=== PATIENT | female | born 1945 | race Caucasian/White ===

== ENCOUNTER 2017-11-04 11:32 | Inpatient (IN) | payer MEDICARE ==
[~2017-11-04] VITALS: Ht 170.2 cm; Wt 86.3 kg
[2017-11-04] MEDS ORDERED: DILTIAZEM HCL 5 MG/ML 5 ML VIAL IV STA ×4 (12:07→13:22)
[2017-11-04] MEDS ORDERED: ONDANSETRON HCL INJ 2 MG/ML VIAL IV STA (12:07)
[2017-11-04] MEDS ORDERED: ENOXAPARIN INJ 80 MG/0.8 ML SYR SC STA (12:48)
[2017-11-04] MEDS ORDERED: DILTIAZEM HCL 5 MG/ML 5 ML VIAL IV ONE (15:30)
[2017-11-04] MEDS ORDERED: ACETAMINOPHEN 325 MG TAB PO PRN (15:30)
[2017-11-04] MEDS ORDERED: ONDANSETRON HCL INJ 2 MG/ML VIAL IV PRN (15:30)
[2017-11-04] MEDS: AMIODARONE HCL 200 MG TAB PO SCH ×2 (15:40→21:30)
[2017-11-04 15:44] VITALS: BP 110/75
[2017-11-04 15:45] VITALS: BP 110/75
[2017-11-04] MEDS ORDERED: DILTIAZEM HCL IV SOLN 125 MG in SODIUM CHLORIDE 0.9% 100 ML 100 ML IV PRN (15:45)
[2017-11-04] MEDS: METOPROLOL TARTRATE 25 MG TAB PO SCH (18:59)
[2017-11-04] MEDS: APIXABAN 5 MG TABLET PO SCH (19:00)
[2017-11-04 19:15] VITALS: BP 93/68
[2017-11-04 21:15] VITALS: BP 105/70
[2017-11-04 21:20] VITALS: BP 105/70
--- NOTE | 2017-11-04 22:53 | Consultation ---
DATE OF CONSULTATION: November 04, 2017 CARDIAC CONSULTATION REASON FOR CONSULTATION: Atrial fibrillation with near syncope. HISTORY: A 71-year-old lady for the last 2 years is having palpitation and near syncope like episodes. Becoming more frequent recently. She is followed by Dr. Wagoner in [facility]. Patient had a Holter 2 weeks ago which showed no abnormality. Today, she was feeling samra no apparent distress dizzy going to pass out. She came to the emergency room. She was in atrial fibrillation with rapid ventricular response. Given Cardizem, started on Cardizem drip. Admitted for further management. Cardiac consult is obtained. Patient denied having angina. She is to a certain extent active. Her main problem is palpitation and strange feeling. She thought it was anxiety. She had several episodes of near syncope. There is no orthopnea. No paroxysmal nocturnal dyspnea. REVIEW OF SYSTEMS: CARDIAC: As per above. PULMONARY: No cough. No hemoptysis. GI: No hematemesis. No melena. GERD symptoms. : Increased frequency of urination. No hematuria. NEUROMUSCULAR: Low backache radiating to the right leg. HEMATOLOGY: No easy bruising or bleeding. ENDOCRINE: No diabetes mellitus. NEUROLOGIC: Occasional headache. No localized deficits. No seizure. PSYCHIATRIC: History of depression in the past. HOME MEDICATIONS: None. ALLERGIES: CODEINE. PAST MEDICAL HISTORY: 1. Hysterectomy. 2. Bartholin gland surgery. 3. Depression in the past. 4. Low back pain. 5. GERD. 6. Radiculopathy to the right leg. FAMILY HISTORY: Father at age 89 with myocardial infarction. Mother of congestive heart failure at age 88. Eight siblings with chronic illnesses and cancer. No premature coronary artery disease. 1 son in his 50s. PHYSICAL EXAMINATION VITALS: Height of 5 feet 7 inches, weight of 200 pounds. Blood pressure 120/80. Heart rate of 60. Respiratory rate of 18. Afebrile. HEENT: Pupils are equal and reactive. NECK: No elevation of jugular venous pulsation. No thyromegaly. No lymphadenopathy. CHEST: Clear to auscultation and percussion. HEART: Irregular, irregular rate. PMI 5th left intercostal space. Normal 1st and 2nd heart sounds. ABDOMEN: Soft with good bowel sounds. No organomegaly. No abdominal bruits. EXTREMITIES: No cyanosis. No clubbing. No edema. No signs of deep venous thrombosis. NEUROLOGIC: Awake, alert oriented. Neck supple. No motor deficit. LABORATORY DATA: Sodium 143. Potassium 4.3. BUN of 15. Creatinine of 1.1. Glucose of 119. BNP of 102. First set of cardiac enzymes normal. White blood cell count of 6.5. Hemoglobin 14.2. Hematocrit 44%. Platelet count of 205,000. Pro time of 11.6 seconds. EKG showing atrial fibrillation with nonspecific ST changes, rapid ventricular response noted. IMPRESSION AND PLAN: 1. Paroxysmal atrial fibrillation. 2. Near syncope. Plausible to be to the fast V response but more possible long pauses and possible contraction abnormalities. 3. Gastroesophageal reflux disease. 4. Allergies and hay fever. 5. Back pain with radiculopathy to the right leg. We had lengthy discussion and discussed treatment of atrial fibrillation. Rate controlled maintenance of anticoagulation to prevent from CVA and observation in her case for possible contraction abnormality. After discussing the pros and cons, we are going to put her on Eliquis, beta esmer. Observe her on telemetry. She needs to discuss with her MD in [place] after she finishes regarding the other options such as ablation ( had already atrial fibrillation ablation), and other moderately and treatment and agents. Although I started the patient on amiodarone orally, my recommendation for this lady is to be on less side effect medication such as Multaq if she converted to normal sinus rhythm. Meanwhile, we will continue Cardizem until the patient's heart rate is controlled or she converts to normal sinus. The final plan of medication and treatment, we discussed several options, but this will be done by the physician who will be following her carefully. I would like to thank you for your kind referral. Job#: [id number]
[2017-11-05 00:19] VITALS: BP 94/60
[2017-11-05 04:38] VITALS: BP 104/60
[2017-11-05 05:40] LABS: BASOPHILS # (AUTO) 0.1 (0.0-0.1); BASOPHILS % 1.1 % (0.0-1.0); EOSINOPHILS # (AUTO) 0.3 (0.0-0.4); EOSINOPHILS % 4.2 % (0.0-6.0); HEMATOCRIT 38.2 % (34.2-44.1); HEMOGLOBIN 12.8 g/dL (12.0-16.0); LYMPHOCYTES # (AUTO) 1.8 (1.0-3.2); LYMPHOCYTES % 27.7 % (18.0-39.1); MEAN CORPUSCULAR HEMOGLOBIN 29.8 pg (28-32); MEAN CORPUSCULAR HGB CONC 33.5 g/dL (31-35); MEAN CORPUSCULAR VOLUME 88.8 fL (81-99); MONOCYTES # (AUTO) 0.8 (0.2-0.8); MONOCYTES % 11.7 % (4.4-11.3); NEUTROPHILS # (AUTO) 3.7 (2.1-6.9); PLATELET COUNT 191 x10e3/uL (140-360); RED CELL DISTRIBUTION WIDTH 12.6 % (11.7-14.4)
[2017-11-05] MEDS: METOPROLOL TARTRATE 25 MG TAB PO SCH ×2 (05:57)
[2017-11-05 06:10] LABS: ALBUMIN 3.6 g/dL (3.5-5.0); ALBUMIN/GLOBULIN RATIO 1.3 (0.8-2.0); ANION GAP 11.2 mmol/L (8-16); CALCIUM 9.3 mg/dL (8.4-10.2); CREATININE, SERUM 0.97 mg/dL (0.57-1.11); POTASSIUM 4.2 mmol/L (3.5-5.1)
[2017-11-05 06:20] LABS: ALANINE AMINOTRANSFERASE 21 IU/L (0-55); ALBUMIN 3.5 g/dL (3.5-5.0); ALKALINE PHOSPHATASE 58 IU/L (40-150); ANION GAP 12.2 mmol/L (8-16); BILIRUBIN,DIRECT 0.3 mg/dL (0.0-0.5); BLOOD UREA NITROGEN 17 mg/dL (7-26); BUN/CREATININE RATIO 18 (6-25); CALCIUM 9.4 mg/dL (8.4-10.2); CARBON DIOXIDE 26 mmol/L (22-29); CHLORIDE 108 mmol/L (98-107); CHOL/HDL RATIO 4.6 (3.0-3.6); CHOLESTEROL 207 MD/DL (0-199); CREATININE, SERUM 0.96 mg/dL (0.57-1.11); EST GLOMERULAR FILTRATION RATE 57 ML/MIN (60-); GLUCOSE 104 mg/dL (74-118); HDL CHOLESTEROL 45 MG/DL (40-60); LDL CHOLESTEROL 141 MG/DL (60-130); MAGNESIUM 2.1 MG/DL (1.3-2.1); POTASSIUM 4.2 mmol/L (3.5-5.1); SODIUM 142 mmol/L (136-145); TRIGLYCERIDES 107 MG/DL (0-149)
[2017-11-05 06:42] LABS: THYROID STIMULATING HORMONE 5.878 uIU/mL (0.350-4.940)
[2017-11-05 07:38] VITALS: BP 113/72
[2017-11-05] MEDS ORDERED: ASPIRIN 325 MG TAB PO SCH (09:00)
[2017-11-05] MEDS ORDERED: ASPIRIN 81 MG CHEW TAB PO SCH (09:00)
[2017-11-05] MEDS: APIXABAN 5 MG TABLET PO SCH (09:58)
[2017-11-05] MEDS: AMIODARONE HCL 200 MG TAB PO SCH ×2 (09:58→15:27)
[2017-11-05 09:59] VITALS: BP 113/72
[2017-11-05 12:11] VITALS: BP 120/76
--- NOTE | 2017-11-05 13:16 | Discharge Summary ---
PRIMARY CARE PHYSICIAN: Dr. Carter Wagoner with [facility] FINAL DIAGNOSIS: Paroxysmal atrial fibrillation with rapid ventricular response, currently in sinus. SECONDARY DIAGNOSES 1. Psychiatric disorder, not otherwise specified. 2. Dyslipidemia. CONSULTANTS: Dr. Montes, cardiology. PROCEDURES/STUDIES PERFORMED: Echocardiogram. HISTORY: Per [facility] HOSPITAL COURSE: Patient was admitted with symptomatic atrial fibrillation with rapid ventricular response. Her TSH was acceptable. Patient was evaluated by cardiology. Patient was on diltiazem drip, subsequently converted to oral amiodarone loading currently at 400 mg p.o. t.i.d. Patient will remain on that for 2 weeks then it come down to b.i.d. Her echocardiogram was relatively unremarkable. Patient will also be on Eliquis for stroke prophylaxis. Patient states that she does not feel safe at home given that the has anger management problem. Patient was evaluated by social work coordinator, case repairer here and will be discharged to a senior living per their recommendation. Patient was seen and evaluated today. CONDITION ON DISCHARGE: Stable. It took 32 minutes total to discharge this patient. DISCHARGE MEDICATIONS: Please see medication reconciliation form. FRANCISCO JAVIER CALIX M.D. Job#: [id number] SRINIVASAN
[2017-11-05] MEDS ORDERED: METOPROLOL TART25 MG PO (16:06)
[2017-11-05] MEDS ORDERED: e (16:06)
[2017-11-05] MEDS ORDERED: PRAVACHOL20 MG PO (16:07)
[2017-11-05] MEDS ORDERED: eliquis PO (16:07)
[2017-11-05] MEDS ORDERED: AMIODARONE HCL200 MG PO (16:09)
[2017-11-05] MEDS ORDERED: METOPROLOL TARTRATE 25 MG TAB PO SCH (17:00)
[2017-11-05] MEDS ORDERED: PRAVASTATIN 20 MG TAB PO SCH (21:00)
== END 2017-11-05 16:49 | DRG 310 ==
LOC: FSED 11:32 → ERHOLD 12:10 → IMCU 14:10
PROVIDERS: ADMIT Internal Medicine; ATTEND Internal Medicine
DX: I48.0 Paroxysmal atrial fibrillation (principal); K21.9 Gastro-esophageal reflux disease without esophagitis; F09 Unspecified mental disorder due to known physiological condition; E78.5 Hyperlipidemia, unspecified; J30.1 Allergic rhinitis due to pollen; M54.10 Radiculopathy, site unspecified; R35.0 Frequency of micturition
CPT/HCPCS: 36415; 71046; 80048; 80053; 80061; 80076; 81003; 82270; 82553; 83735; 83880; 84443; 84484; 85025; 85610; 93005; 93306; 99285; J2405

== ENCOUNTER → 2018-05-22 | Emergency (ER) | payer MEDICARE ==
[~2018-05-22] VITALS: Ht 170.2 cm; Wt 86.2 kg
[~2018-05-22] MED LIST: AMIODARONE HCL200 MG PO; METOPROLOL TART25 MG PO; ONDANSETRON HCL INJ 2 MG/ML VIAL IV NR; PRAVACHOL20 MG PO; e; eliquis PO
--- OUTSIDE RECORDS SUMMARY | 2018-05-22 10:14 | XMS REPORT | Clinical Summary ---
Author Author [facility] Address Unknown Phone Unavailable Care Team Providers Care Web Support Engineer Name Role Phone Carter Wagoner PCP Allergies No Known Allergies Medications End Date Status Medication Sig Dispensed Refills Start Date 05/22/2017 azithromycin (ZITHROMAX Take 1 tablet 6 tablet 0 Z-YASMIN) 250 MG tablet (250 mg 7 total) by mouth daily for 5 days 2 tabs day one then one daily till gone. 05/24/2017 benzonatate (TESSALON) Take 1 21 capsule 0 100 MG capsule capsule (100 7 mg total) by mouth every 8 (eight) hours for 7 days. 05/24/2017 ondansetron (ZOFRAN) 4 MG Take 1 tablet 12 tablet 0 tablet (4 mg total) 7 by mouth every 6 (six) hours for 7 days. Active Problems Not on file Social History Date Tobacco Use Types Packs/Day Years Used Never Assessed Sex Assigned at Date Recorded Not on file Industry Job Start Date Occupation Not on file Not on file Not on file Travel End Travel History Travel Start No recent travel history available. Last Filed Vital Signs Not on file Plan of Treatment Not on file Results Not on fileafter 05/21/2017 Insurance Payer Benefit Subscriber ID Type Phone Address Plan / Group [facility] xxxxxxxxxxx MEDICARE ADV
--- OUTSIDE RECORDS SUMMARY | 2018-05-22 10:14 | XMS REPORT | Clinical Summary ---
Author Author [facility] Address Unknown Phone Unavailable Care Team Providers Care Second Time Worker Name Role Phone Asked, No Pcp PCP Unavailable Allergies No Known Allergies Medications End Date Status Medication Sig Dispensed Refills Start Date Active aspirin (ECOTRIN) 81 MG Take 81 mg by 0 enteric coated tablet mouth daily. Active Problems Not on file Social History Date Tobacco Use Types Packs/Day Years Used Never Smoker Alcohol Use Drinks/Week oz/Week Comments No Sex Assigned at Date Recorded Not on file Industry Job Start Date Occupation Not on file Not on file Not on file Travel End Travel History Travel Start No recent travel history available. Last Filed Vital Signs Not on file Plan of Treatment Health Maintenance Due Date Last Done Comments BREAST CANCER SCREENING 1994 COLON CANCER SCREENING 1994 SHINGLES VACCINES (1 of 1994 2) PNEUMOCOCCAL 2009 POLYSACCHARIDE VACCINE AGE 65 AND OVER PNEUMOCOCCAL-13 2009 INFLUENZA VACCINE 12/22/2017 Results Not on fileafter 05/21/2017 Insurance Payer Benefit Subscriber ID Type Phone Address Plan / Group [facility] ADVANTAGE [facility] x[facility]xx HMO ADVANTAGE [facility] COMMERCIAL MISC MISC xxxxxxxxxx Commercial COMMERCIAL Liability Advance Directives Patient has advance care planning documents on file. For more information, prakash johnson contact: Raj Dunn [address] [place] [id number]
[2018-05-22 12:20] LABS: BASOPHILS % 0.4 % (0.0-1.0); EOSINOPHILS # (AUTO) 0.1 (0.0-0.4); EOSINOPHILS % 0.8 % (0.0-6.0); HEMATOCRIT 39.7 % (34.2-44.1); HEMOGLOBIN 13.1 g/dL (12.0-16.0); LYMPHOCYTES # (AUTO) 0.7 (1.0-3.2); LYMPHOCYTES % 7.4 % (18.0-39.1); MEAN CORPUSCULAR HEMOGLOBIN 30.4 pg (28-32); MEAN CORPUSCULAR VOLUME 92.1 fL (81-99); MONOCYTES # (AUTO) 0.5 (0.2-0.8); MONOCYTES % 4.9 % (4.4-11.3); NEUTROPHILS # (AUTO) 8.5 (2.1-6.9); NEUTROPHILS % 85.9 % (38.7-80.0); PLATELET COUNT 240 x10e3/uL (140-360); RED BLOOD COUNT 4.31 x10e6/uL (3.6-5.1); RED CELL DISTRIBUTION WIDTH 12.9 % (11.7-14.4)
[2018-05-22 12:30] LABS: INR 0.95; PROTHROMBIN TIME 13.5 seconds (11.9-14.5)
[2018-05-22 12:31] LABS: COLOR,URINE YELLOW (YELLOW)
[2018-05-22 12:32] LABS: BILIRUBIN,URINE NEGATIVE (NEGATIVE); CLARITY,URINE SL CLOUDY (CLEAR); KETONES,URINE NEGATIVE (NEGATIVE); LEUKOCYTE ESTERASE ,URINE 1+ (NEGATIVE); NITRITE,URINE POSITIVE (NEGATIVE); PROTEIN,URINE DIPSTICK NEGATIVE (NEGATIVE); URINE UROBILINOGEN 0.2 mg/dL (0.2 - 1)
[2018-05-22 12:36] LABS: BACTERIA,URINE MANY /HPF; EPITHELIAL CELLS,URINE FEW /LPF; RBC,URINE 0-5 /HPF (0-5)
[2018-05-22 12:42] LABS: ALANINE AMINOTRANSFERASE 63 IU/L (0-55); ALBUMIN 3.9 g/dL (3.5-5.0); ALBUMIN/GLOBULIN RATIO 1.1 (0.8-2.0); ALKALINE PHOSPHATASE 82 IU/L (40-150); AMYLASE 105 U/L (25-125); ANION GAP 14.9 mmol/L (8-16); BLOOD UREA NITROGEN 20 mg/dL (7-26); BUN/CREATININE RATIO 21 (6-25); CALCIUM 9.6 mg/dL (8.4-10.2); CARBON DIOXIDE 24 mmol/L (22-29); CHLORIDE 103 mmol/L (98-107); CREATINE KINASE 46 IU/L (29-168); CREATININE, SERUM 0.95 mg/dL (0.57-1.11); EST GLOMERULAR FILTRATION RATE 58 ML/MIN (60-); GLUCOSE 124 mg/dL (74-118); LIPASE 19 U/L (8-78); MAGNESIUM 2.6 MG/DL (1.3-2.1); POTASSIUM 3.9 mmol/L (3.5-5.1); SODIUM 138 mmol/L (136-145)
[2018-05-22 13:58] VITALS: BP 128/7
== END | disposition home or self-care (01) ==
LOC: ER 10:11
DX: R11.2 Nausea with vomiting, unspecified (principal); M54.5 Low back pain; G89.29 Other chronic pain; N30.90 Cystitis, unspecified without hematuria; I48.91 Unspecified atrial fibrillation; E78.5 Hyperlipidemia, unspecified; E07.9 Disorder of thyroid, unspecified
CPT/HCPCS: 36415; 80053; 81001; 82150; 82550; 82553; 83690; 83735; 84484; 85025; 85610; 85730; 87086; 87186; 93005; 99284

== ENCOUNTER 2020-07-26 20:02 | Emergency (ER) | payer MEDICARE ==
[~2020-07-26] VITALS: Ht 170.2 cm; Wt 86.2 kg
[~2020-07-26 20:02] MED LIST changes: -ONDANSETRON HCL INJ 2 MG/ML VIAL IV NR
[2020-07-27] MEDS ORDERED: ONDANSETRON HCL INJ 2MG/ML 2ML 2 MG/ML VIAL IV STA (00:02)
[2020-07-27] MEDS ORDERED: ONDANSETRON HCL INJ 2MG/ML 2ML 2 MG/ML VIAL ONE (00:13)
[2020-07-27 00:14] LABS: BASOPHILS # (AUTO) 0.1 (0.0-0.1); BASOPHILS % 0.7 % (0.0-1.0); EOSINOPHILS # (AUTO) 0.1 (0.0-0.4); EOSINOPHILS % 0.6 % (0.0-6.0); HEMATOCRIT 37.1 % (34.2-44.1); HEMOGLOBIN 11.9 g/dL (12.0-16.0); LYMPHOCYTES # (AUTO) 1.2 (1.0-3.2); LYMPHOCYTES % 13.9 % (18.0-39.1); MEAN CORPUSCULAR HEMOGLOBIN 29.4 pg (28-32); MEAN CORPUSCULAR HGB CONC 32.1 g/dL (31-35); MEAN CORPUSCULAR VOLUME 91.6 fL (81-99); MONOCYTES # (AUTO) 0.7 (0.2-0.8); MONOCYTES % 7.8 % (4.4-11.3); NEUTROPHILS # (AUTO) 6.7 (2.1-6.9); NEUTROPHILS % 76.4 % (38.7-80.0); PLATELET COUNT 300 x10e3/uL (140-360); RED BLOOD COUNT 4.05 x10e6/uL (3.6-5.1); RED CELL DISTRIBUTION WIDTH 13.6 % (11.7-14.4)
[2020-07-27 00:23] LABS: CLARITY,URINE CLOUDY (CLEAR); COLOR,URINE YELLOW (YELLOW); KETONES,URINE 1+ (NEGATIVE); LEUKOCYTE ESTERASE ,URINE MODERATE (NEGATIVE); NITRITE,URINE POSITIVE (NEGATIVE); PROTEIN,URINE DIPSTICK TRACE (NEGATIVE); URINE UROBILINOGEN 0.2 mg/dL (0.2 - 1)
[2020-07-27 00:33] LABS: ALANINE AMINOTRANSFERASE 19 IU/L (0-55); ALBUMIN 3.7 g/dL (3.5-5.0); ALBUMIN/GLOBULIN RATIO 1.1 (0.8-2.0); ALKALINE PHOSPHATASE 95 IU/L (40-150); ANION GAP 12.9 mmol/L (8-16); BLOOD UREA NITROGEN 10 mg/dL (7-26); BUN/CREATININE RATIO 13 (6-25); CALCIUM 9.5 mg/dL (8.4-10.2); CARBON DIOXIDE 26 mmol/L (22-29); CHLORIDE 103 mmol/L (98-107); CREATININE, SERUM 0.78 mg/dL (0.57-1.11); EST GLOMERULAR FILTRATION RATE > 60 ML/MIN (60-); GLUCOSE 115 mg/dL (74-118); POTASSIUM 3.9 mmol/L (3.5-5.1); SODIUM 138 mmol/L (136-145)
[2020-07-27 00:36] LABS: BACTERIA,URINE MANY /HPF; EPITHELIAL CELLS,URINE FEW /LPF; RBC,URINE 0-5 /HPF (0-5); WBC,URINE (MAN) >50 /HPF (0-5)
[2020-07-27] MEDS ORDERED: BACTRIM DS TAB1 EACH PO (00:52)
== END 2020-07-27 01:27 | disposition home or self-care (01) ==
LOC: ER 20:55
DX: R10.11 Right upper quadrant pain (principal); M54.5 Low back pain; E78.5 Hyperlipidemia, unspecified; I48.91 Unspecified atrial fibrillation; E03.9 Hypothyroidism, unspecified; M54.9 Dorsalgia, unspecified; G89.29 Other chronic pain
CPT/HCPCS: 36415; 71045; 80053; 81001; 83690; 85025; 99283; J2405

== ENCOUNTER 2022-03-20 14:31 | Observation (INO) | payer MEDICARE ==
[~2022-03-20] VITALS: Ht 170.2 cm; Wt 83.0 kg
[~2022-03-20 14:31] MED LIST changes: +BACTRIM DS TAB1 EACH PO
[2022-03-20] MEDS ORDERED: DIGOXIN INJ 0.25 MG/ML 2 ML AMP IV STA (14:35)
[2022-03-20] MEDS ORDERED: METOPROLOL TARTRATE INJ 1 MG/ML VIAL IV STA (14:35)
[2022-03-20] MEDS ORDERED: DILTIAZEM HCL 5 MG/ML 5 ML VIAL IV STA (14:35)
[2022-03-20 14:48] LABS: BASOPHILS # (AUTO) 0.1 (0.0-0.1); BASOPHILS % 0.8 % (0.0-1.0); EOSINOPHILS # (AUTO) 0.1 (0.0-0.4); EOSINOPHILS % 1.8 % (0.0-6.0); HEMATOCRIT 45.6 % (34.2-44.1); HEMOGLOBIN 14.8 g/dL (12.0-16.0); MEAN CORPUSCULAR HEMOGLOBIN 30.1 pg (28-32); MEAN CORPUSCULAR HGB CONC 32.5 g/dL (31-35); MEAN CORPUSCULAR VOLUME 92.9 fL (81-99); MONOCYTES # (AUTO) 0.8 (0.2-0.8); MONOCYTES % 10.4 % (4.4-11.3); NEUTROPHILS # (AUTO) 4.6 (2.1-6.9); NEUTROPHILS % 60.7 % (38.7-80.0); PLATELET COUNT 226 x10e3/uL (140-360); RED BLOOD COUNT 4.91 x10e6/uL (3.6-5.1); RED CELL DISTRIBUTION WIDTH 12.5 % (11.7-14.4)
[2022-03-20 15:05] LABS: ALBUMIN 4.4 g/dL (3.5-5.0); ALBUMIN/GLOBULIN RATIO 1.3 (0.8-2.0); ANION GAP 15.1 mmol/L (8-16); CALCIUM 9.7 mg/dL (8.4-10.2); CREATININE, SERUM 0.98 mg/dL (0.57-1.11); POTASSIUM 4.1 mmol/L (3.5-5.1)
[2022-03-20 15:11] LABS: CREATINE KINASE MB 1.1 ng/mL (0-5.0)
[2022-03-20] MEDS ORDERED: ONDANSETRON HCL INJ 2MG/ML 2ML 2 MG/ML VIAL IV PRN (15:30)
[2022-03-20] MEDS ORDERED: Morphine 4mg INJECTION 4 MG/ML INJ IV PRN (15:30)
[2022-03-20] MEDS: SODIUM CHLORIDE 0.9% 1000ML 1,000 ML IV SCH ×2 (15:32→23:30)
[2022-03-20] MEDS ORDERED: ACETAMINOPHEN 325 MG TAB PO PRN (16:15)
[2022-03-20] MEDS: APIXABAN 5 MG TABLET PO SCH (16:47)
[2022-03-20] MEDS: METOPROLOL TARTRATE 25 MG TAB PO SCH (16:47)
[2022-03-20 16:50] LABS: AMPHETAMINES SCREEN,URINE NEGATIVE (NEGATIVE); BENZODIAZEPINES SCREEN,URINE NEGATIVE (NEGATIVE); PHENCYCLIDINE SCREEN,URINE NEGATIVE (NEGATIVE)
[2022-03-20] MEDS: AMIODARONE HCL 200 MG TAB PO SCH (17:14)
[2022-03-20 20:06] VITALS: BP 136/90
[2022-03-20 20:13] VITALS: BP 136/90
[2022-03-20 20:20] VITALS: BP 136/90
[2022-03-20] MEDS ORDERED: FLUOCINONIDE-E15 GM (20:29)
[2022-03-20] MEDS ORDERED: ONDANSETRON ODT4 MG PO (20:29)
[2022-03-20] MEDS ORDERED: MECLIZINE HCL12.5 MG PO (20:29)
[2022-03-20] MEDS ORDERED: HYDROCORTISONE30 GM TOP (20:29)
[2022-03-20] MEDS ORDERED: ELIQUIS5 MG PO (20:29)
[2022-03-20] MEDS ORDERED: TRIAMCINOLONE A15 G1 TOP (20:29)
[2022-03-20] MEDS ORDERED: DULCOLAX10 MG PR (20:29)
[2022-03-20] MEDS ORDERED: [UNRECOGNIZED DRUG - OTHER] (20:29)
[2022-03-20] MEDS ORDERED: PRAVASTATIN 20 MG TAB PO SCH (21:00)
[2022-03-21 00:52] VITALS: BP 104/80
[2022-03-21 05:02] VITALS: BP 117/77
[2022-03-21 05:54] LABS: BASOPHILS # (AUTO) 0.1 (0.0-0.1); EOSINOPHILS # (AUTO) 0.2 (0.0-0.4); EOSINOPHILS % 2.8 % (0.0-6.0); HEMATOCRIT 39.6 % (34.2-44.1); HEMOGLOBIN 12.6 g/dL (12.0-16.0); LYMPHOCYTES # (AUTO) 1.8 (1.0-3.2); LYMPHOCYTES % 26.2 % (18.0-39.1); MEAN CORPUSCULAR HEMOGLOBIN 30.1 pg (28-32); MEAN CORPUSCULAR HGB CONC 31.8 g/dL (31-35); MEAN CORPUSCULAR VOLUME 94.7 fL (81-99); MONOCYTES # (AUTO) 0.8 (0.2-0.8); MONOCYTES % 11.3 % (4.4-11.3); NEUTROPHILS % 58.4 % (38.7-80.0); PLATELET COUNT 181 x10e3/uL (140-360); RED BLOOD COUNT 4.18 x10e6/uL (3.6-5.1); RED CELL DISTRIBUTION WIDTH 12.3 % (11.7-14.4)
[2022-03-21 06:18] LABS: ALBUMIN 3.5 g/dL (3.5-5.0); ALBUMIN/GLOBULIN RATIO 1.6 (0.8-2.0); ANION GAP 11.1 mmol/L (8-16); CALCIUM 8.5 mg/dL (8.4-10.2); CREATININE, SERUM 1.02 mg/dL (0.57-1.11); POTASSIUM 4.1 mmol/L (3.5-5.1)
[2022-03-21 06:34] LABS: CREATINE KINASE 39 IU/L (29-168)
[2022-03-21] MEDS: SODIUM CHLORIDE 0.9% 1000ML 1,000 ML IV SCH (07:30)
[2022-03-21 08:03] VITALS: BP 118/75
[2022-03-21] MEDS: APIXABAN 5 MG TABLET PO SCH (08:34)
[2022-03-21] MEDS: AMIODARONE HCL 200 MG TAB PO SCH (08:34)
[2022-03-21] MEDS: METOPROLOL TARTRATE 25 MG TAB PO SCH (08:35)
[2022-03-21 11:19] VITALS: BP 118/75
[2022-03-21 11:21] VITALS: BP 101/72
[2022-03-21] MEDS ORDERED: AMIODARONE HCL200 MG PO (12:02)
== END 2022-03-21 12:48 | disposition home or self-care (01) ==
LOC: ER 14:39 → ERHOLD 15:26 → MED/SURG 18:09
PROVIDERS: ADMIT Internal Medicine; ATTEND Internal Medicine
DX: I48.0 Paroxysmal atrial fibrillation (principal); Z79.01 Long term (current) use of anticoagulants; E78.00 Pure hypercholesterolemia, unspecified; F20.9 Schizophrenia, unspecified; R42 Dizziness and giddiness; Z20.822 Contact with and (suspected) exposure to COVID-19; I10 Essential (primary) hypertension
CPT/HCPCS: 36415 ×2; 71045; 80053 ×2; 80307; 82550 ×2; 82553 ×2; 83880; 84443; 84484 ×2; 85025 ×2; 93005; 99284; G0378 ×2; J1160; J7030 ×2; U0002